=== PATIENT | male | born 1960 | race Caucasian/White ===

== ENCOUNTER 2021-09-12 08:48 | Inpatient (IN) | payer OTHER, SELFPAY ==
--- NOTE | 2020-09-16 20:00 | NUR ---
PATIENTG SEDATED STABLE VITALS SIGNS IN NORMAL LIMITS SR ON MONITOR NOT SIGNS OF PAIN //DiCaprio RN
[~2021-09-12] VITALS: Ht 193 cm; Wt 98.4 kg
[2021-09-12 08:48] VITALS: BP 156/95
[2021-09-12] MEDS ORDERED: LORazepam 2 MG/ML VIAL IVP ONE (08:50)
--- NOTE | 2021-09-12 09:10 | NUR ---
61/M BIBA FROM HOME WITH C/O SOB SINCE THIS MORNING. PER EMS PATIENT TESTED POSITIVE FOR COVID 3 WEEKS AGO AND WAS BEING TREATED FOR BOTH COVID AND LYMPHOMA AT [facility]. PATIENT REPORTS HE RECEIVED REMDESIVIR AT [facility] FOR COVID TREATMENT AND HAD AN ALLERGIC REACTION. EMS STATES PATIENT AMA FROM FACILITY YESTERDAY DUE TO FEELING "ISOLATED." EMS STATES AT HOME PATIENT HAD A FEVER OF 101.0 AND CHILLS AND OXYGEN SATURATION WAS IN THE 60'S. PATIENT ON 15L NON REBREATHER UPON ARRIVAL RAISING OXYGEN SATURATION TO 95%. UPON ARRIVAL TEMPERATURE 98.0. PATIENT PLACED IN GOWN AND ON BEDSIDE INSURANCE ADVISER. UPON ARRIVAL, DR. COWAN, RT AND RN AT BEDSIDE EVALUATING PATIENT.
[2021-09-12 10:38] LABS: BASOPHILS % (AUTO) 0.4 % (0.0-2.0); HEMATOCRIT 30.3 % (36-52); LYMPHOCYTES # (AUTO) 0.1 K/uL (2.0-11.5); LYMPHOCYTES % (AUTO) 0.9 % (20.5-51.1); MEAN CORPUSCULAR HEMOGLOBIN 31 pg (27-31); MEAN CORPUSCULAR HGB CONC 33 g/dL (33-37); MEAN CORPUSCULAR VOLUME 94.7 fL (80-94); MONOCYTES # (AUTO) 0.1 K/uL (0.8-1.0); MONOCYTES % (AUTO) 1.6 % (1.7-9.3); NEUTROPHILS # (AUTO) 8.1 K/uL (1.8-7.7); NEUTROPHILS % (AUTO) 97.1 % (42.2-75.2); PLATELET COUNT (AUTO) 109 K/uL (140-450); RED CELL DISTRIBUTION WIDTH 14.5 % (11.6-13.7); WHITE BLOOD COUNT (AUTO) 8.4 K/uL (4.8-10.8)
[2021-09-12 11:00] LABS: ALBUMIN 2.4 g/dL (3.4-5.0); CARBON DIOXIDE 15.2 mmol/L (21-32); POTASSIUM 5.2 mmol/L (3.5-5.1); TOTAL BILIRUBIN 1.1 mg/dL (0.0-1.0)
[2021-09-12 11:49] VITALS: BP 118/71
[2021-09-12 11:53] LABS: CREATININE 7.1 mg/dL (0.6-1.3)
[2021-09-12] MEDS ORDERED: NACL 0.9% 500 ML IV ONE (12:00)
--- NOTE | 2021-09-12 12:14 | NUR ---
PER V.O. DR. SHANE COWAN REMOVE PATIENT FROM BIPAP TO MASK TOLERATED
--- NOTE | 2021-09-12 12:14 | NUR ---
SPOKE TO PATIENTS AND MOTHER, GIVEN UPDATE ON PATIENTS STATUS.
--- NOTE | 2021-09-12 12:28 | NUR ---
REMOVED BIPAP TO MASK PLACED ON SUPPLEMENTAL OXYGEN AT 5 LPM VIA NC
--- NOTE | 2021-09-12 12:33 | NUR ---
SATURATION 87% ON SUPPLEMENTAL OYXGEN AT 5 LPM VIA NC INCREASED FIO2 TO 6 LPM
--- NOTE | 2021-09-12 12:34 | NUR ---
SATURATION 92% ON SUPPLEMENTAL OXYGEN AT 6 LPM VIA NC Addendum: 09/12/21 at 1303 by ROCKYA HR 24 [id number]
--- NOTE | 2021-09-12 12:37 | NUR ---
REVIEWED WITH DR. SHANE COWAN PATIENT STATUS OFF BIPAP; OXYGEN LEVEL AND SATURATION FROM 4 TO 6 LPM VIA NC
[2021-09-12] MEDS ORDERED: CEFEPIME 500 MG in DEXTROSE 5% 50 ML IV ONE (13:05)
[2021-09-12] MEDS ORDERED: VANCOMYCIN PER PHARMACY MC PRN (13:05)
[2021-09-12] MEDS ORDERED: VANCOMYCIN 1,000 MG in DEXTROSE 5% 250 ML IV ONE (13:30)
[2021-09-12] MEDS ORDERED: VANCOMYCIN 1,000 MG VIAL ONE (13:31)
--- NOTE | 2021-09-12 15:10 | NUR ---
SPOKE WITH MARY KATE, FROM PATIENTS INSURANCE, GIVEN AUTH TO ADMIT TO INPATIENT TELE AUTH #[id number]. REQUESTING CLINICALS BE FAXED
[2021-09-12] MEDS ORDERED: ACETAMINOPHEN EXTRA STRENGTH 500 MG TAB PO ONE (15:40)
[2021-09-12] MEDS ORDERED: ACETAMINOPHEN 650 MG SUPP RC ONE ×2 (15:50→18:00)
--- NOTE | 2021-09-12 16:00 | NUR ---
PATIENTS TEMPORAL TEMP READING 102.7, DR. STOREY MADE AWARE. PATIENT MEDICATED ORDERED.
[2021-09-12] MEDS ORDERED: MORPHINE SULFATE 2 MG/ML SYR IVP PRN (17:20)
[2021-09-12] MEDS ORDERED: HYDROcodone/APAP 5/325 MG 1 TAB TAB PO PRN (17:20)
[2021-09-12] MEDS ORDERED: ACETAMINOPHEN 325 MG TAB PO PRN (17:20)
[2021-09-12] MEDS ORDERED: NACL 0.9% 1,000 ML IV SCH (17:20)
[2021-09-12] MEDS ORDERED: SODIUM PHOS / POTASSIUM PHOS 1 PKT PDR PO PRN (17:20)
[2021-09-12] MEDS ORDERED: MAGNESIUM OXIDE 400 MG TAB PO PRN (17:20)
[2021-09-12] MEDS ORDERED: POTASSIUM CHLORIDE 10 MEQ TABER PO PRN (17:20)
[2021-09-12] MEDS ORDERED: DOCUSATE SODIUM 100 MG GELCAP PO PRN (17:20)
[2021-09-12] MEDS ORDERED: ONDANSETRON 4 MG/2 ML VIAL IM/IVP PRN (17:20)
--- NOTE | 2021-09-12 17:47 | NUR ---
DR. CHAPMAN BEDSIDE SPEAKING WITH FAMILY
--- NOTE | 2021-09-12 18:00 | NUR ---
GIVEN VERBAL ORDER BY DR. CHAPMAN FOR RC TYLENOL 650MG TO BE GIVEN. ORDER PLACED.
[2021-09-12] MEDS ORDERED: ACETAMINOPHEN 650 MG SUPP RC SCH (18:07)
[2021-09-12 18:48] LABS: MAGNESIUM 2.6 mg/dL (1.8-2.4)
--- NOTE | 2021-09-12 19:35 | NUR ---
Pt report given to FAITH NEELY. Transfer of care at this time.
--- NOTE | 2021-09-12 19:46 | NUR ---
report given to Ankita CUEVAS from [facility] unit.
--- NOTE | 2021-09-12 22:00 | NUR ---
RECEIVED PATIENT FROM ER, TRANSFERRED FROM [facility] TO BED SAFELY. HEART MONITOR PLACED. GOWN CHANGED AND ORIENTED TO ROOM. CALL LIGHT PLACED WITHIN REACH. PATIENT DROWSY BUT AROUSABLE AND ORIENTED X 4 WITH MUFFLED SPEECH. CALLED FOR ADMISSION Q&A, SAID PATIENT HAVE BEEN DROWSY SINCE DISCHARGE FROM [facility]. IV FLUIDS REGULATED AT DESIRED RATE. ADVISED PATIENT TO CALL FOR ANY NEEDS. WILL CONTINUE TO MONITOR PATIENT.
[2021-09-12] MEDS ORDERED: ACETAMINOPHEN 650 MG SUPP RC PRN (23:59)
[2021-09-13] VITALS (15 sets, daily range): BP systolic 95–168; BP diastolic 51–97
--- NOTE | 2021-09-13 02:00 | NUR ---
PATIENT RESTING COMFORTABLY ON BED. BREATHING EVEN AND UNLABORED. NO SIGNS OF RESPIRATORY DISTRESS. WILL CONTINUE TO MONITOR AND ASSESS.
--- NOTE | 2021-09-13 06:09 | NUR ---
PATIENT RESTING ON BED. OBSERVED SWELLING ON LEFT ARM. IV FLUIDS PLACED ON HOLD. UNABLE TO FIND A VEIN FOR IV INSERTION, CALLED ER NURSE TO INSERT IV LINE BUT UNABLE TO FIND ONE. WILL ENDORSE TO MORNING RN.
--- NOTE | 2021-09-13 07:30 | NUR ---
RECEIVED REPORT FROM SKINNER PELTS NURSE. PT STABLE
[2021-09-13 07:52] LABS: HEMATOCRIT 27.7 % (36-52); HEMOGLOBIN 9.2 g/dL (12.0-18.0); MEAN CORPUSCULAR HEMOGLOBIN 31 pg (27-31); MEAN CORPUSCULAR HGB CONC 33 g/dL (33-37); MEAN CORPUSCULAR VOLUME 94.4 fL (80-94); PLATELET COUNT (AUTO) 106 K/uL (140-450); RED BLOOD CELL COUNT(AUTO) 2.94 MIL/uL (4.20-6.10); RED CELL DISTRIBUTION WIDTH 14.6 % (11.6-13.7); WHITE BLOOD COUNT (AUTO) 10.7 K/uL (4.8-10.8)
[2021-09-13 08:40] LABS: ANION GAP 24.6 (8-16); CARBON DIOXIDE 14.4 mmol/L (21-32)
[2021-09-13 08:54] LABS: CREATININE 8.4 mg/dL (0.6-1.3)
[2021-09-13] MEDS ORDERED: PANTOPRAZOLE 40 MG INJ VIAL IVP SCH (09:00)
--- NOTE | 2021-09-13 10:32 | NUR ---
PATIENT HAS BEEN SCREENED AND CATEGORIZED HIGH NUTRITION RISK. PATIENT WILL BE SEEN WITHIN 1-2 DAYS OF ADMISSION. 09/13/21-09/14/[address]
--- NOTE | 2021-09-13 10:56 | NUR ---
GOT ABG ORDER. ORDER CANCELLED VERBALLY BY MD CHAPMAN. PT DNR NOW . AND RN AT BEDSIDE. WANTS PATIENT JUST TO BE COMFORTABLE NO TREATMENT AT THIS TIME. NO NEW ORDERS.
[2021-09-13] MEDS ORDERED: LORazepam 2 MG/ML VIAL IM/IVP PRN (11:30)
[2021-09-13] MEDS ORDERED: MORPHINE SULFATE 50 MG in NACL 0.9% 45 ML IV PRN (11:30)
--- NOTE | 2021-09-13 11:30 | NUR ---
PT IS NOW ON COMFORT CARE, DNR, DNI. PT FAMILY AT BEDSIDE. AWAITING ORDERS FOR MORPHINE DRIP PROTOCOL.
--- NOTE | 2021-09-13 12:21 | NUR ---
DC PLANNING: CM AND SW MET THE PATIENTS AT BEDSIDE, PATIENT WITH EYES CLOSES, RAPID RESPIRATIONS. THE PATIENT LIVES IN [place] BUT IS STAYING WITH HIS IN A MOTOR HOME AT [address] WHICH IS AN OFFICE BUILDING THAT THEY OWN. THE PATIENT ADMITTED WITH C/O SOB, TESTED COVID POSITIVE ON 09/09, WAS BEING TREATED AT [facility] FOR LYMPHOMA BUT DECIDED TO END TREATMENT. THE PATIENTS WOULD LIKE THE PATIENT TO RETURN TO THE MOTOR HOME WITH HOSPICE, CM EXPLAINED THAT THE PATIENT'S INSURANCE IS FOR [facility] AND THAT THERE MIGHT BE ISSUES WITH [facility]RANGING HOSPICE AT THE [employer] ADDRESS. DISCUSSED STARTING COMFORT CARE HERE AT THE HOSPITAL, BOTH STEFANIA AND FRANCISCO EXPLAINED THE EFFECTS OF A MORPHINE GTT INCLUDING DECREASED RESPIRATIONS AND POTENTIAL HASTENING OF EXPIRATION. EMPHASIZED IMPORTANCE OF KEEPING THE PATIENT COMFORTABLE, SUE STATED THAT SHE'S IN AGREEMENT WITH MORPHINE GTT AND THAT SHE WANTS HIM TO BE LESS ANXIOUS AND TO HELP HIS RESPIRATORY DISTRESS. SHE ALSO ASKED FOR A FOOD ASSEMBLER COMMISSARY KITCHEN FROM [facility] IN [place], CM CALLED THEM AND SPOKE WITH PASTOR SANDRA MCQUEEN WILL COME AROUND 3:00 PM TODAY. STEFANIA ALSO CALLED [email or web address] ([phone]) AND SPOKE WITH ARIADNA, MERCEDES FOR STEFANIA IVERSON GIVEN ([phone]). ARIADNA EMAILED CONTRACTED LIST OF HOSPICES, INFORMED STEFANIA THAT PATIENT WOULD HAVE TO COME BACK TO [facility] FOR SERVICES. CONTRACTED HOSPICES ARE IN [facility], LEFT FOR BRANDI REGARDING THIS. STEFANIA THEN SPOKE AGAIN WITH THE PATIENTS SPOUSE TO UPDATE HER ON THE [facility] ARRIVAL TIME. PATIENTS 2 SONS AT BEDSIDE, [facility] AND BEING STARTED ON MORPHINE GTT. PATIENTS SUE HAD STATED THAT PATIENT WAS NOW M/BEN BECAUSE SHE GAVE [place] A CHANGE OF ADDRESS FOR [facility], PATIENT IS STILL WITH [facility]. STEFANIA WILL FOLLOW. Addendum: 09/13/21 at 1346 by Alyson Garcia DC PLANNING SW AND CM MET WITH PATIENT AND AT BED SIDE TO DISCUSS PATIENT 'S NEEDS AND LEVELS OF CARE, DISCUSS HOSPICE AND OPTIONS WELL, FAMILY SUPPORT AND PREPARATION FOR FAMILY ACCEPTANCE OF PATIENT BEEN IN COMFORT CARE. WAS ABLE TO UNDERSTAND AND AGREED WITH NEEDS FOR PATIENT ON THAT LEVEL OF CARE. SW AND CM WILL FOLLOW UP NEEDED. Addendum: 09/13/21 at 1432 by Cherrie Fletcher CM DC PLANNING: STEFANIA RECEIVED A CALL FROM ASHLEY AT [facility] ([phone]), STATES THAT PATIENT IS CAPITATED TO [facility]. FACE SHEET AND COVID RESULTS FAXED PER HIS REQUEST ([phone]), HE WILL SPEAK WITH THE ATTENDING MD AND START ARRANGING A BED. STEFANIA SPOKE WITH THE PATIENTS AND MOTHER TO NOTIFY THEM AND ALSO DR CHAPMAN, FAMILY IS IN AGREEMENT WITH TRANSFER. PATIENT HAS NOW MADE THE PATIENT A FULL CODE, MORPHINE GTT STOPPED AND PATIENT TRANSFERRED TO ICU. DR CHAPMAN WILL WRITE A TRANSFER ORDER, CM WILL FOLLOW. Addendum: 09/14/21 at 1134 by Cherrie Fletcher CM DC PLANNING: STEFANIA SPOKE WITH THE PATIENTS SUE THIS MORNING TO UPDATE HER ON TRANSFER ARRANGEMENTS TO A CONTRACTED HOSPITAL. SUE STATES THAT SHE DOES NOT WANT HOSPICE, PATIENT NOW WITH LINDA, HD TO BE INITIATED. ON O2 OF 15L VIA NC, FIO2 NOW 80%, ON A PRECEDEX GTT. STEFANIA ALSO SPOKE WITH STEFANIA PAZ AT [facility] REGARDING TRANSFER, PHONE NUMBER [phone], ENDORSED THAT PATIENT IS NOW ICU STATUS. SHE WILL REVIEW THE PATIENT WITH HER HOOK UP DRIVER TO SEE IF HE IS COMFORTABLE TRANSFERRING THE PATIENT. STEFANIA WILL FOLLOW. Addendum: 09/14/21 at 1500 by Cherrie Fletcher CM DC PLANNING: STEFANIA SPOKE WITH BRANDI FROM [facility], THE HOOK UP DRIVER DR HOYT SPOKE WITH DR CHAPMAN, NOW WAITING FOR THE ACCEPTING MD AT [facility] DR HERNANDEZ TO SPEAK WITH THE ATTENDING MD HERE. [facility] IS THE ONLY CONTRACTED HOSPITAL WITH AN ICU BED, NO UPDATE YET. STEFANIA ALSO SPOKE WITH THE PATIENTS SUE AND UPDATED HER ON THE CURRENT SITUATION REGARDING HER HUSBANDS TRANSFER. STEFANIA WILL FOLLOW. Addendum: 09/14/21 at 1641 by Cherrie Fletcher CM DC PLANNING: STEFANIA SPOKE WITH BRANDI AT [facility], DR HERNANDEZ TO SPEAK WITH DR CHAPMAN REGARDING TRANSFER TO [facility], [facility] WILL CALL THE AUTOMATED WEAVER IF AN ICU BED BECOMES AVAILABLE. TO FOLLOW UP ON TRANSFER OVER THE WEEKEND PLEASE CALL THE AFTER HOURS NUMBER FOR [facility] AT [phone]. STEFANIA WILL FOLLOW. Addendum: 09/17/21 at 1615 by Magalys Fleming RN DC PLANNING: RECEIVED A CALL FROM [facility] [phone] SPOKE WITH BRANDI AGUIAR UPDATED PT'S CLINICAL, PATIENT CAN BE ADMITTED IN [facility] FOR HF 36L/NC WITH 65% FIO2 PROVIDE DR RODRIGUEZ'S CELL PHONE FOR PEER TO PEER DISCUSSION. ONCE SHE HAS ACCEPTING HOSPITAL WILL CALL US BACK. SPOKE WITH PT'S UPDATED WITH THE STATUS. CM TO FOLLOW. Addendum: 09/18/21 at 1413 by Magalys Fleming RN DC PLANNING: RECEIVED A CALL FROM [facility] STEFANIA SPOKE WITH BRANDI MATAMOROS PT IS ACCEPTED AT [facility] AT [address] [id number] # TO GIVE REPORT [phone] KIT VERGARA. ARRANGE TRANSPORT WITH NEIL NAVARRO WITH BIPAP 50%FIO2 ASSEMBLER BILLIARD TABLE TIME 3 PM. NOTIFIED CHRISTIANA CUEVAS. STEFANIA TO FOLLOW
[2021-09-13 13:03] LABS: BASOPHILS % (MANUAL) 0 % (0-2); BLASTS, MANUAL % 0 % (0-0); EOSINOPHILS % (MANUAL) 0 % (0-4); LYMPHOCYTES % (MANUAL) 1 % (20-46); METAMYELOCYTES % 0 % (0-0); MONOCYTES % (MANUAL) 3 % (5-12); MYELOCYTES % 0 % (0-0); OTHER CELLS,MANUAL % 0 (0-0); PROMYELOCYTES % 0 % (0-0)
--- NOTE | 2021-09-13 14:15 | NUR ---
PER RN, PT IS NOW ON COMFORT CARE, DNR, DNI. WILL DISCONTINUE NUTRITION ASSESSMENTS AND FOLLOW UPS. RD WILL REMAIN AVAILABLE FOR CONSULTS NEEDS AND WILL RESTART NUTRITION ASSESSMENT IF REQUESTED. SADAF BRICENO RD
--- NOTE | 2021-09-13 14:39 | NUR ---
PT TRANSFERRED TO ICU BED 8.
[2021-09-13] MEDS ORDERED: VANCOMYCIN PER PHARMACY MC PRN (14:55)
--- NOTE | 2021-09-13 15:30 | NUR ---
RECEIVED REPORT FROM HOME CARE AIDE. PATIENT MOVED TO ICU BED. ATTEMPTED TO PLACE NGT. BLEEDING FROM NARE AND PATIENT AGITATED. PATIENT LETHARGIC. OPENS EYES AND SQUEEZES HANDS TO COMMAND. WILL REATTEMPT ONCE NOSE BLEED SUBSIDES. O2 4L/NC SA02 84-90%. ANTERIO/LATERAL BREATH SOUNDS WITH CRACKLES AT BILATERAL BASES. RESP. RATE 22-30. BOWEL SOUNDS ACTIVE. ABDOMEN SOFT. INCONTINENT OF URINE. KLINE CATHETER PLACED.
[2021-09-13] MEDS: DEXMEDETOMIDINE HCL 400 MCG in NACL 0.9% 96 ML IV PRN (15:41)
--- NOTE | 2021-09-13 15:45 | NUR ---
ON OR ABOUT THIS TIME CONFIRMATION ON STATUS CODE: FULL CODE VIA CELL PHONE WITH DR. BELLA CHAPMAN
--- NOTE | 2021-09-13 15:45 | NUR ---
SPOKE WITH . CONSENTS SIGNED FOR PICC LINE, DIALYSIS CATHETER AND DIALYSIS.
--- NOTE | 2021-09-13 15:55 | NUR ---
PLACED ON A VAPOTHERM NASAL CANNULA NOTED TOLERATING WELL WITHOUT ADVERSE REACTIONS NOTED NEYDA/RN NOTED
[2021-09-13] MEDS: FLUCONAZOLE 100 MG/NS PREMIX 50 ML IV SCH (16:00)
[2021-09-13] MEDS ORDERED: CEFEPIME 500 MG in DEXTROSE 5% 50 ML IV SCH (16:30)
--- NOTE | 2021-09-13 16:58 | NUR ---
RN'S AT BEDSIDE FOR NG INSERTION ASP NET MVC DEVELOPER TO ATTEMPT ABG AT A LATER TIME
[2021-09-13 17:10] LABS: BILIRUBIN,URINE NEGATIVE (NEGATIVE); BLOOD, URINE 3+ (NEGATIVE); COLOR,URINE YELLOW (YELLOW); LEUKOCYTE ESTERASE ,URINE NEGATIVE (NEGATIVE); NITRITE, URINE NEGATIVE (NEGATIVE); UGLUCOSE NEGATIVE (NEGATIVE)
[2021-09-13 17:14] LABS: APPEARANCE,URINE SLIGHTLY CLOUDY (CLEAR)
[2021-09-13] MEDS ORDERED: ACETAMINOPHEN 650 MG SUPP RC ONE (17:18)
[2021-09-13] MEDS: ACETAMINOPHEN 650 MG SUPP RC PRN (17:22)
--- NOTE | 2021-09-13 17:30 | NUR ---
URINE SPECIMEN COLLECTED AND SENT TO LAB FOR CULTURE.
--- NOTE | 2021-09-13 17:54 | NUR ---
CALLED DR. DANNI LINDER AT [facility] TO REVIEW ABG SAMPLE RESULTS REYNALDO/EXCHANGE TO PAGE FOREMENTIONEDiane GÓMEZ
[2021-09-13 17:56] LABS: RBC,URINE 0-5 /HPF (0-5); WBC,URINE 0-5 /HPF (0-5)
--- NOTE | 2021-09-13 17:57 | NUR ---
CALL BACK FROM DR. DANNI LINDER REVIEWED ABG SAMPLE REPORT; HIGH FLOW NASAL CANNULA FIO2 90% FLOW 16 T 33.O C TORBO: CONTINUE WITH CURRENT TREATMENT
[2021-09-13] MEDS: CEFEPIME 500 MG in DEXTROSE 5% 50 ML IV SCH (18:00)
[2021-09-13] MEDS ORDERED: VANCOMYCIN 1,000 MG in DEXTROSE 5% 250 ML IV SCH (18:30)
--- NOTE | 2021-09-13 19:18 | NUR ---
REPORT GIVEN TO RAFAEL RNRODRIGUEZ.
--- NOTE | 2021-09-13 19:20 | NUR ---
RECEIVED REPORT FROM DAY SHIFT NURSE, ASSUMED CARE. PATIENT IN NO APPARENT ACUTE DISTRESS, BREATHING ON HIGH FLOW AT 15 L/MIN FIO2 90%, O2 SAT 99%. EVEN BILATERAL CHEST EXPANSION WITH BILATERAL CRACKLES HEAR UPON AUSCULATION. PATIENT SEDATED RUNNING PRECEDEX 0.4 MCG/KG/HR VIA R 22 GAUGE ON R FOOT. PERRL +3 MM[address] K[address] CATHETER IN PLACE DRAINING AT GRAVITY. SKIN INTACT. ALL SAFETY MEASURES IN PLACE, WILL CONTINUE TO CLOSELY MONITOR AND FOLLOW POC.
--- NOTE | 2021-09-13 19:25 | NUR ---
SPOKE TO PATIENT'S SUE IN THE LOBBY, PROVIDED UPDATE. INQUIRED ABOUT PATIENT'S TRANSFER TO [facility] IF IT WAS ALREADY ARRANGED, NOTIFIED HER THAT CASE MANAGEMENT SENT ALL REQUIRED DOCUMENTATION TO [facility] AND STILL PENDING ACCEPTANCE.
--- NOTE | 2021-09-13 21:44 | NUR ---
PATIENT OBSERVED SEDATED WITH EYES CLOSED IN NO ACUTE DISTRESS. BREATHING ON HIGH FLOW O2 15 L/MIN FIO2 90%, O2 SAT 99%. ALL SAFETY MEASURES IN PLACE, WILL CONTINUE TO CLOSELY MONITOR AND FOLLOW POC.
--- NOTE | 2021-09-13 23:00 | NUR ---
RECEIVED CALL FROM PT'S SUE, PROVIDED HER WITH PT UPDATE. NOTIFIED HER PATIENT IS STILL PENDING DIALYSIS CATHETER INSERTION AND PICC LINE INSERTION. ALSO NOTIFIED HER THERE ARE NO UPDATES REGARDING TRANSFER TO [facility].
[2021-09-14] VITALS (26 sets, daily range): BP systolic 84–136; BP diastolic 47–93
[2021-09-14] MEDS ORDERED: LORazepam 2 MG/ML VIAL ONE (00:04)
--- NOTE | 2021-09-14 00:27 | NUR ---
MYCHAL PADRON PERFORMED DIALYSIS CATHETER INSERTION. PATIENT IN NO APPARENT ACUTE DISTRESS. ADMINISTERED ATIVAN PRIOR TO PROCEDURE FOR AGITATION. PATIENT TOLERATED PROCEDURE WELL. WILL CONTINUE TO CLOSELY MONITOR AND FOLLOW POC.
--- NOTE | 2021-09-14 01:43 | NUR ---
PATIENT OBSERVED SEDATED IN NO ACUTE DISTRESS. O2 SAT 99% ON HIGH FLOW FIO2 90%, 15 L/MIN. PRECEDEX RUNNING AT 0.2 MCG/KG/HR. ALL SAFETY MEASURES IN PLACE, WILL CONTINUE TO CLOSELY MONITOR AND FOLLOW POC.
--- NOTE | 2021-09-14 03:00 | NUR ---
PROVIDED MORNING CARE, PATIENT IN NO ACUTE DISTRESS. BREATHING ON HIGH FLOW 15 L FIO2 90% SATURATION 100%. STOPPED PRECEDEX PATIENT IS SEDATED WITH NO SIGNS OF AGITATION OR RESTLESSNESS. ALL SAFETY MEASURES IN PLACE, WILL CONTINUE TO CLOSELY MONITOR AND FOLLOW POC.
--- NOTE | 2021-09-14 03:57 | NUR ---
PAGED [place] KID[facility] SPECIALIST PER PICC LINE NURSE SUNI REQUEST TO CONFIRM IF PATIENT REQUIRES A PICC LINE INSERTION. PATIENT HAD TRIDIALYSIS CATHETER INSERTED AND NEED TO CONFIRM IF IT MAY BE USED FOR IV ACCESS.
--- NOTE | 2021-09-14 04:08 | NUR ---
DR. GARCIA CALLED BACK AND CONFIRMED IT'S OK TO USE TRIDIALYSIS CATHETER CENTRAL LINE AND NO NEED TO INSERT PICC LINE. PICC LINE NURSE NOTIFIED AND MADE AWARE.
--- NOTE | 2021-09-14 06:00 | NUR ---
SPOKE WITH DIALYSIS NURSE PLACIDO TO CONFIRM DIALYSIS FOR PATIENT THIS MORNING, PLACIDO MADE AWARE OF ORDER AND DIALYSIS ACCESS. PER CUMMINS, DIALYSIS TO BE DONE BETWEEN 0800 - 0900 THIS MORNING.
--- NOTE | 2021-09-14 06:05 | NUR ---
PATIENTS SUE CALLED FOR UPDATE, UPDATED HER REGARDING MOST CURRENT CONDITION, ALL QUESTIONS ANSWERED. PATIENT IN NO ACUTE DISTRESS. WILL CONTINUE TO CLOSELY MONITOR AND FOLLOW POC.
[2021-09-14 06:08] LABS: BASOPHILS % (AUTO) 0.1 % (0.0-2.0); HEMATOCRIT 22.3 % (36-52); HEMOGLOBIN 7.4 g/dL (12.0-18.0); LYMPHOCYTES # (AUTO) 0.1 K/uL (2.0-11.5); LYMPHOCYTES % (AUTO) 2.1 % (20.5-51.1); MEAN CORPUSCULAR HEMOGLOBIN 32 pg (27-31); MEAN CORPUSCULAR HGB CONC 34 g/dL (33-37); MEAN CORPUSCULAR VOLUME 94.4 fL (80-94); MONOCYTES % (AUTO) 0.9 % (1.7-9.3); NEUTROPHILS # (AUTO) 3.9 K/uL (1.8-7.7); NEUTROPHILS % (AUTO) 96.9 % (42.2-75.2); PLATELET COUNT (AUTO) 54 K/uL (140-450); RED BLOOD CELL COUNT(AUTO) 2.36 MIL/uL (4.20-6.10); RED CELL DISTRIBUTION WIDTH 14.5 % (11.6-13.7)
--- NOTE | 2021-09-14 07:26 | NUR ---
GAVE REPORT TO DAY SHIFT NURSE, ENDORSED CARE. Addendum: 09/14/21 at 0728 by Eloise Eden RN PATIENT IN NO ACUTE DISTRESS. O2 SAT 99%.
--- NOTE | 2021-09-14 07:30 | NUR ---
RECEIVED REPORT FROM PASTEURIZER NURSE. PT IN BD WITH HOB ELEVATED. LETHARGIC, RESPONDS TO TACTILE STIMULI. NO APPARENT ACUTE DISTRESS ON HIGH FLOW AT 15 L/MIN FIO2 80%, O2 SAT 97%. EVEN BILATERAL CHEST EXPANSION WITH BILATERAL CRACKLES HEAR UPON AUSCULTATION. WITH IV R 22 GAUGE ON R FOOT. WITH RIJ ROSHAN CATH WITH PIGTAIL. PLAN FOR HD TODAY, HD NURSE AWARE. KLINE CATHETER IN PLACE DRAINING AT GRAVITY. SKIN INTACT. ALL SAFETY MEASURES IN PLACE, WILL CONTINUE TO CLOSELY MONITOR AND FOLLOW POC.
[2021-09-14 08:04] LABS: ANION GAP 24.2 (8-16); CARBON DIOXIDE 12.2 mmol/L (21-32)
[2021-09-14 08:28] LABS: POTASSIUM 6.4 mmol/L (3.5-5.1)
[2021-09-14 08:29] LABS: CREATININE 10.2 mg/dL (0.6-1.3)
--- NOTE | 2021-09-14 09:15 | NUR ---
DUE MEDS GIVEN. ORAL CARE AND KLINE CARE DONE. TURNED AND REPOSITIONED
[2021-09-14] MEDS: PANTOPRAZOLE 40 MG INJ VIAL IVP SCH (09:16)
--- NOTE | 2021-09-14 09:30 | NUR ---
PT'S , SUE, IN FRONT LOBBY, UPDATE GIVEN
[2021-09-14] MEDS ORDERED: ALBUMIN HUMAN 25% 100 ML IV ONE ×2 (09:42→09:45)
[2021-09-14] MEDS ORDERED: ALBUMIN HUMAN 25% 100 ML IV PRN (09:45)
--- NOTE | 2021-09-14 10:30 | NUR ---
HD ONGOING, BP 87/45, PRN ALBUMIN GIVEN
--- NOTE | 2021-09-14 11:00 | NUR ---
CALLED BEDSIDE DUE TO LOW SPO2. FLOW INCREASED TO 40L AND FIO2 INCREASED TO 100%, NRB PLACED OVER HIGH FLOW DUE TO LOW INCREASE IN SPO2 PERCENTAGE. WILL CONTINUE TO MONITOR.
--- NOTE | 2021-09-14 11:00 | NUR ---
DESATURATING TO 85% ON HIFLOW 15L 80%, RT NOTIFIED, INCREASED HIFLOW TO 40L 100%
--- NOTE | 2021-09-14 12:30 | NUR ---
HEMODIALYSIS DONE. BP STABLE AT THIS TIME. O2SAT 100% ON HIFLOW 40L FIO2, NRM 15L
--- NOTE | 2021-09-14 13:58 | NUR ---
PT'S CALLED, UPDATE GIVEN
[2021-09-14] MEDS: DEXT 5% /NACL 0.9% 1,000 ML IV SCH (15:08)
--- NOTE | 2021-09-14 16:23 | NUR ---
09/14/21 RD INITIAL ASSESSMENT COMPLETED PLEASE REFER TO NUTRITION ASSESSMENT UNDER CARE ACTIVITY FOR ESTIMATED NUTRITIONAL NEEDS. 1. CONTINUE NPO MEDICALLY APPROPRIATE 2. WHEN/IF MEDICALLY APPROPRIATE, ADVANCE DIET PER MD 3. IF PT REQUIRES TUBE FEEDING, RECOMMEND NEPRO WITH A GOAL RATE OF 40 ML/HR -FWF: 50 ML Q6H OR PER MD -START AT 10 ML/HR AND INCREASE BY 10 ML Q6H TOLERATED -WILL PROVIDE > 75% OF ESTIMATED NUTRITION NEEDS 4. RD TO FOLLOW-UP 2-3 DAYS, HIGH RISK SADAF BRICENO RD
[2021-09-14] MEDS: FLUCONAZOLE 100 MG/NS PREMIX 50 ML IV SCH (16:26)
[2021-09-14] MEDS: CEFEPIME 500 MG in DEXTROSE 5% 50 ML IV SCH (17:04)
[2021-09-14] MEDS ORDERED: TPN PER PHARMACY MC PRN (17:20)
[2021-09-14] MEDS: ACETAMINOPHEN 650 MG SUPP RC PRN (18:00)
--- NOTE | 2021-09-14 18:00 | NUR ---
WITH TEMP 100.2, COOLING MEASURES RENDERED, BAIRON CARE DONE, TURNED AND REPOSITIONED
--- NOTE | 2021-09-14 19:10 | NUR ---
RECEIVED REPORT FROM DAY SHIFT NURSE, ASSUMED CARE. PATIENT IN NO APPARENT ACUTE DISTRESS, BREATHING ON HIGH FLOW AT 40 L/MIN FIO2 100%, AND NON-REBREATHER MASK AT 15 L, O2 SAT 99%. EVEN BILATERAL CHEST EXPANSION WITH BILATERAL CRACKLES HEARD UPON AUSCULATION. PATIENT LIGHTLY SEDATED RUNNING PRECEDEX 0.2 MCG/KG/HR VIA PIGTAIL ON RIGHT IJ TRIDIALYSIS CATHETER. PERRL +3 MM. KLINE CATHETER IN PLACE DRAINING AT GRAVITY. SKIN INTACT. ALL SAFETY MEASURES IN PLACE, WILL CONTINUE TO CLOSELY MONITOR AND FOLLOW POC
--- NOTE | 2021-09-14 20:00 | NUR ---
PATIENT IN NO APPARENT ACUTE DISTRESS, O2 SAT 100%. TEMPERATURE 99.3. COOLING MEASURES STILL IN PLACE WILL CONTINUE TO CLOSELY MONITOR AND FOLLOW POC.
--- NOTE | 2021-09-14 21:00 | NUR ---
RECEIVED CALL FROM PT'S SUE, PROVIDED HER WITH PT UPDATE. ALL QUESTIONS ANSWERED.
[2021-09-14] MEDS: DEXMEDETOMIDINE HCL 400 MCG in NACL 0.9% 96 ML IV PRN (23:28)
[2021-09-15] VITALS (26 sets, daily range): BP systolic 94–127; BP diastolic 44–78
--- NOTE | 2021-09-15 00:30 | NUR ---
PATIENT OBSERVED WITH EYES CLOSED IN NO APPARENT ACUTE DISTRESS, PRECEDEX DRIP NO LONGER RUNNING ONLY RUNNING D5 NS AT 50 ML/HR. BREATHING ON HIGH FLOW AT 40 L AND FIO2 100% AND NON REBREATHER AT 15 L, O2 SAT 100%. TEMPERATURE 99.3. ALL SAFETY MEASURES IN PLACE, WILL CONTINUE TO CLOSELY MONITOR AND FOLLOW POC.
--- NOTE | 2021-09-15 00:30 | NUR ---
ACCUCHECK BS 170, 2 UNITS OF HUMALOG INSULIN COVERAGE ADMINISTERED. PATIENT IN NO APPARENT ACUTE DISTRESS, CONTINUES ON HIGH FLOW AT 40 L/MIN AND FIO2 90 %. NO FEVER AT THIS TIME. WILL CONTINUE TO CLOSELY MONITOR AND FOLLOW POC. Addendum: 09/16/21 at 0247 by Eloise Eden RN WRONG DATE INPUT. CORRECT DATE 09/16/21 0030
--- NOTE | 2021-09-15 04:30 | NUR ---
MORNING CARE PROVIDED INCLUDING ORAL CARE. PATIENT IN NO APPARENT ACUTE DISTRESS, TOLERATED WELL. TEMP 98.4. PATIENT AWAKE AOX1 UNABLE TO SPEAK CLEARLY, DENIES PAIN BY NODDING HEAD. CONTINUES ON HIGH FLOW AT 40 L, FIO2 100%, AND NONREBREATHER AT [address] PL[address] WITH NO URINE OUTPUT AND NO BM. ALL SAFETY MEASURES IN PLACE, WILL CONTINUE TO CLOSELY MONITOR AND FOLLOW POC.
[2021-09-15 05:45] LABS: BASOPHILS % (AUTO) 0.3 % (0.0-2.0); HEMATOCRIT 22.9 % (36-52); HEMOGLOBIN 7.8 g/dL (12.0-18.0); LYMPHOCYTES # (AUTO) 0.1 K/uL (2.0-11.5); LYMPHOCYTES % (AUTO) 1.1 % (20.5-51.1); MEAN CORPUSCULAR HEMOGLOBIN 32 pg (27-31); MEAN CORPUSCULAR HGB CONC 34 g/dL (33-37); MEAN CORPUSCULAR VOLUME 93.2 fL (80-94); MONOCYTES # (AUTO) 0.1 K/uL (0.8-1.0); MONOCYTES % (AUTO) 0.9 % (1.7-9.3); NEUTROPHILS # (AUTO) 6.4 K/uL (1.8-7.7); NEUTROPHILS % (AUTO) 97.7 % (42.2-75.2); PLATELET COUNT (AUTO) 70 K/uL (140-450); RED BLOOD CELL COUNT(AUTO) 2.46 MIL/uL (4.20-6.10); RED CELL DISTRIBUTION WIDTH 14.8 % (11.6-13.7); WHITE BLOOD COUNT (AUTO) 6.6 K/uL (4.8-10.8)
[2021-09-15 05:48] LABS: ANION GAP 20.1 (8-16); CARBON DIOXIDE 21.1 mmol/L (21-32); POTASSIUM 4.2 mmol/L (3.5-5.1)
[2021-09-15 06:10] LABS: CREATININE 8.1 mg/dL (0.6-1.3)
[2021-09-15 06:21] LABS: MAGNESIUM 2.5 mg/dL (1.8-2.4); PHOSPHORUS 8.5 mg/dL (2.5-4.9)
--- NOTE | 2021-09-15 07:06 | NUR ---
PT WAS ON NRB @15LPM AND HFNC 100% 40L WITH SATS OF 100%. PATIENT WAS STABLE THROUGHOUT THE NIGHT ACCORDING TO REPORTS AND PT WAS TAKEN OFF 15LPM NRB AND JUST HAS HFNC. PT IS STILL SAT @ 100a%. WILL CONT TO MONITOR
--- NOTE | 2021-09-15 07:26 | NUR ---
PROVIDED REPORT TO DAY SHIFT, ENDORSED CARE. PATIENT IN NO ACUTE DISTRESS.
--- NOTE | 2021-09-15 07:26 | NUR ---
RECEIVED REPORT FROM RODRIGUEZ HALL RN. PT IN BD WITH HOB ELEVATED. LETHARGIC, RESPONDS TO TACTILE STIMULI. NO APPARENT ACUTE DISTRESS ON HIGH FLOW AT 40 L/MIN FIO2 100%. EVEN BILATERAL CHEST EXPANSION WITH BILATERAL CRACKLES HEAR UPON AUSCULTATION. WITH IV R 22 GAUGE ON R FOOT. WITH RIJ ROSHAN CATH WITH PIGTAIL. F/C IN PLACE DRAINING TO GRAVITY. SKIN INTACT. DROPLET PRECAUTIONS IN PLACE FOR COVID PUI. ALL SAFETY MEASURES IN PLACE, WILL CONTINUE TO CLOSELY MONITOR.
--- NOTE | 2021-09-15 08:20 | NUR ---
CALLED. UPDATED REGARDING PT CONDITION VIA TELEPHONE. ALL QUESTIONS ANSWERED AT THIS TIME.
--- NOTE | 2021-09-15 08:25 | NUR ---
SEEN AND EXAMINED BY DR REARDON.
--- NOTE | 2021-09-15 08:50 | NUR ---
SEEN AND EXAMINED BY DR WILSON.
[2021-09-15] MEDS: PANTOPRAZOLE 40 MG INJ VIAL IVP SCH (08:53)
--- NOTE | 2021-09-15 09:30 | NUR ---
SEEN AND EXAMINED BY DR BULL.
[2021-09-15] MEDS ORDERED: VANCOMYCIN 1,000 MG in DEXTROSE 5% 250 ML IV SCH (10:00)
[2021-09-15] MEDS: DEXT 5% /NACL 0.9% 1,000 ML IV SCH (10:25)
--- NOTE | 2021-09-15 11:00 | NUR ---
PT CLEANED AND REPOSITIONED. WATERY LIGHT BROWN STOOL NOTED. RECTAL TUBE INSERTED PER DR WILSON ORDER. Addendum: 09/15/21 at 1508 by Elle Mancilla RN WRONG PATIENT PLEASE DISREGARD.
--- NOTE | 2021-09-15 12:00 | NUR ---
PT AGITATED, REACHING FOR F/C. PT REORIENTED VERBALLY. RESUMED PRECEDEX DRIP AT 0.2 MCG/KG/HR PER PROTOCOL. WILL CONTINUE TO CLOSELY MONITOR.
[2021-09-15] MEDS: BLOOD GLUCOSE MONITORING 1 DEV DEV MC SCH ×2 (12:39→17:52)
--- NOTE | 2021-09-15 13:00 | NUR ---
RASS 0. PT CALM IN THE BED. PRECEDEX CONTINUED AT 0.2 MCG/KG/HR. WILL CONTINUE TO CLOSELY MONITOR.
[2021-09-15] MEDS: FLUCONAZOLE 100 MG/NS PREMIX 50 ML IV SCH (15:43)
--- NOTE | 2021-09-15 16:00 | NUR ---
DIALYSIS NURSE AT BEDSIDE. DIALYSIS STARTED. WILL CONTINUE TO CLOSELY MONITOR.
[2021-09-15] MEDS: CEFEPIME 500 MG in DEXTROSE 5% 50 ML IV SCH (16:45)
--- NOTE | 2021-09-15 17:00 | NUR ---
SEEN AND EXAMINED BY DR TOMAS. ORDERS RECEIVED.
--- NOTE | 2021-09-15 19:15 | NUR ---
RECEIVED REPORT FROM DAY SHIFT NURSE, ASSUMED CARE. PATIENT IN NO APPARENT ACUTE DISTRESS, BREATHING ON HIGH FLOW AT 40 L/MIN FIO2 90%, O2 SAT 100%. EVEN BILATERAL CHEST EXPANSION WITH BILATERAL CLEAR LUNG SOUNDS HEARD UPON AUSCULATION. PATIENT LIGHTLY SEDATED RUNNING PRECEDEX 0.2 MCG/KG/HR VIA PIGTAIL ON RIGHT IJ ROSHAN CATHETER. PERRL +3 MM. KLINE CATHETER IN PLACE DRAINING AT GRAVITY. SKIN INTACT. DIALYSIS NURSE LEAVING BEDSIDE WITH REPORT GIVEN OF 1900 ML OUTPUT. ALL SAFETY MEASURES IN PLACE, WILL CONTINUE TO CLOSELY MONITOR AND FOLLOW POC.
--- NOTE | 2021-09-15 19:20 | NUR ---
ENDORSED BEDSIDE REPORT TO RODRIGUEZ CUEVAS FOR CONTINUITY OF CARE.
[2021-09-15] MEDS: FAT EMULSION 20% IV SCH ×3 (21:00)
[2021-09-15] MEDS: DEXTROSE 20% IV SCH ×3 (21:00)
[2021-09-15] MEDS: AMINO ACIDS 8.5% IV SCH ×3 (21:00)
--- NOTE | 2021-09-15 23:00 | NUR ---
RECEIVED CALL FROM PATIENTS SUE, PROVIDED HER WITH AN UPDATE REGARDING PATIENT'S CONDITION. ALL QUESTIONS ANSWERED AND ADDRESSED.
[2021-09-16] VITALS (25 sets, daily range): BP systolic 110–159; BP diastolic 62–89
--- NOTE | 2021-09-16 00:30 | NUR ---
ACCUCHECK BS 170, 2 UNITS OF HUMALOG INSULIN COVERAGE ADMINISTERED. PATIENT IN NO APPARENT ACUTE DISTRESS, CONTINUES ON HIGH FLOW AT 40 L/MIN AND FIO2 90 %. NO FEVER AT THIS TIME. WILL CONTINUE TO CLOSELY MONITOR AND FOLLOW POC.
--- NOTE | 2021-09-16 01:20 | NUR ---
RT AT BEDSIDE, DECREASED HIGH FLOW FIO2 TO 80%. PT TOLERATED WELL. WILL CONTINUE TO CLOSELY MONITOR AND FOLLOW POC.
[2021-09-16] MEDS: INSULIN LISPRO SLIDING SCALE 100 UNITS/ML VIAL SUBQ PRN ×3 (01:48→17:58)
--- NOTE | 2021-09-16 03:30 | NUR ---
MORNING AND ORAL CARE PROVIDED, PATIENT TOLERATED WELL. PATIENT IN NO APPARENT ACUTE DISTRESS, BREATHING ON HIGH FLOW AT 40 L/MIN AND FIO2 80%, O2 SAT 99%. PRECEDEX CONTINUES TO RUN AT 0.2 MCG/KG/HR, PATIENT REACTS TO TACTILE STIMULI BUT DOES NOT OPEN EYES, RASS 0. ALL SAFETY MEASURES IN PLACE, WILL CONTINUE TO CLOSELY MONITOR AND FOLLOW POC.
[2021-09-16 05:12] LABS: BASOPHILS % (AUTO) 0.2 % (0.0-2.0); EOSINOPHILS % (AUTO) 0.2 % (0.0-4.0); HEMATOCRIT 22.1 % (36-52); HEMOGLOBIN 7.4 g/dL (12.0-18.0); LYMPHOCYTES # (AUTO) 0.1 K/uL (2.0-11.5); MEAN CORPUSCULAR HEMOGLOBIN 31 pg (27-31); MEAN CORPUSCULAR HGB CONC 34 g/dL (33-37); MEAN CORPUSCULAR VOLUME 93.3 fL (80-94); MONOCYTES # (AUTO) 0.1 K/uL (0.8-1.0); NEUTROPHILS # (AUTO) 7.5 K/uL (1.8-7.7); PLATELET COUNT (AUTO) 65 K/uL (140-450); RED BLOOD CELL COUNT(AUTO) 2.36 MIL/uL (4.20-6.10); RED CELL DISTRIBUTION WIDTH 14.8 % (11.6-13.7); WHITE BLOOD COUNT (AUTO) 7.6 K/uL (4.8-10.8)
[2021-09-16 05:39] LABS: CREATININE 6.6 mg/dL (0.6-1.3)
[2021-09-16] MEDS: BLOOD GLUCOSE MONITORING 1 DEV DEV MC SCH ×4 (05:47→17:54)
[2021-09-16 05:50] LABS: MAGNESIUM 2.4 mg/dL (1.8-2.4); PHOSPHORUS 5.6 mg/dL (2.5-4.9)
--- NOTE | 2021-09-16 06:00 | NUR ---
RECEIVED CALL FROM PT'S SUE, PROVIDED HER WITH UPDATE. ALL QUESTIONS ANSWERED.
[2021-09-16 06:16] LABS: LYMPHOCYTES % (AUTO) 0.9 % (20.5-51.1); MONOCYTES % (AUTO) 0.9 % (1.7-9.3); NEUTROPHILS % (AUTO) 97.8 % (42.2-75.2)
[2021-09-16] MEDS: DEXT 5% /NACL 0.9% 1,000 ML IV SCH (07:02)
--- NOTE | 2021-09-16 07:15 | NUR ---
Received pt on semi fowlers position,not in distress, on HFNC at 80% FIO2,saturating well, vital signs stable, on TPN infusing well at 50mls/hr. Sanjay catheter with pigtail via right internaljugular vein, dressing dry.With navarro catheter patent connected to drainage bag
--- NOTE | 2021-09-16 07:15 | NUR ---
GAVE REPORT TO DAY SHIFT NURSE, ENDORSED CARE. PT IN NO APPARENT ACUTE DISTRESS.
--- NOTE | 2021-09-16 07:23 | NUR ---
CALLED DIALYSIS NURSE CUMMINS AND CONFIRMED DIALYSIS SCHEDULED FOR TODAY.
[2021-09-16] MEDS: PANTOPRAZOLE 40 MG INJ VIAL IVP SCH (08:57)
--- NOTE | 2021-09-16 09:40 | NUR ---
Dr Castillo here, seen pt, noted all parameters, no further orders,continue plan of care.
--- NOTE | 2021-09-16 10:30 | NUR ---
Dr Degroot here, seen and examined pt, no further orders.
--- NOTE | 2021-09-16 12:00 | NUR ---
Turning and repositioning done,skin care done
[2021-09-16] MEDS: DEXMEDETOMIDINE HCL 400 MCG in NACL 0.9% 96 ML IV PRN (14:57)
--- NOTE | 2021-09-16 15:00 | NUR ---
Pt became restless,agitated, pulling out lines,shouting, precedex resumetokeep RSS of -1. HD nurse here and started dialyzing the pt
[2021-09-16] MEDS: CEFEPIME 500 MG in DEXTROSE 5% 50 ML IV SCH (17:25)
[2021-09-16] MEDS ORDERED: COMMUNICATION ORDER MC PRN (17:25)
[2021-09-16] MEDS: ACYCLOVIR 200 MG CAP PO SCH (18:00)
--- NOTE | 2021-09-16 19:01 | NUR ---
pt anxious,but notin distress, vitalsigns stable,saturating well.stillon HFNC at 65 % FIO2.
[2021-09-16] MEDS: DEXTROSE 20% IV SCH ×3 (20:24)
[2021-09-16] MEDS: FAT EMULSION 20% IV SCH ×3 (20:24)
[2021-09-16] MEDS: AMINO ACIDS 8.5% IV SCH ×3 (20:24)
[2021-09-17] VITALS (23 sets, daily range): BP systolic 128–160; BP diastolic 52–99
--- NOTE | 2021-09-17 | NUR ---
PATIENT STABLE SEDATED VITALS SIGNS IN NORMAL LIMITS NOT SIGNS OF PAIN PRCEDEX GOING AT 0.06 //DiCaprio RN
[2021-09-17] MEDS: BLOOD GLUCOSE MONITORING 1 DEV DEV MC SCH ×4 (00:14→18:23)
[2021-09-17] MEDS: DEXMEDETOMIDINE HCL 400 MCG in NACL 0.9% 96 ML IV PRN ×4 (00:31→22:26)
[2021-09-17 06:49] LABS: BASOPHILS % (AUTO) 0.1 % (0.0-2.0); EOSINOPHILS % (AUTO) 0.1 % (0.0-4.0); LYMPHOCYTES # (AUTO) 0.1 K/uL (2.0-11.5); LYMPHOCYTES % (AUTO) 1.3 % (20.5-51.1); MEAN CORPUSCULAR HEMOGLOBIN 32 pg (27-31); MEAN CORPUSCULAR HGB CONC 34 g/dL (33-37); MEAN CORPUSCULAR VOLUME 94.7 fL (80-94); MONOCYTES # (AUTO) 0.1 K/uL (0.8-1.0); MONOCYTES % (AUTO) 1.2 % (1.7-9.3); NEUTROPHILS # (AUTO) 8.1 K/uL (1.8-7.7); NEUTROPHILS % (AUTO) 97.3 % (42.2-75.2); PLATELET COUNT (AUTO) 58 K/uL (140-450); RED BLOOD CELL COUNT(AUTO) 1.85 MIL/uL (4.20-6.10); RED CELL DISTRIBUTION WIDTH 15.1 % (11.6-13.7); WHITE BLOOD COUNT (AUTO) 8.4 K/uL (4.8-10.8)
--- NOTE | 2021-09-17 07:10 | NUR ---
Received pt on semi fowlers position,breathing spontaneously with 75% FIO2,saturating 96%,not in distress,on TPN at 50 mls/hr, Precedex drip to keep RASS of -1, with right internal jugular vein Sanjay catheter intact , with navarro catheter patent ,no output, pt on HD. Vital signs stable,saturating well
[2021-09-17 07:26] LABS: HEMATOCRIT 17.5 % (36-52)
[2021-09-17 07:27] LABS: ANION GAP 16.9 (8-16)
[2021-09-17 07:43] LABS: MAGNESIUM 1.8 mg/dL (1.8-2.4)
[2021-09-17 07:58] LABS: CREATININE 4.2 mg/dL (0.6-1.3); POTASSIUM 2.9 mmol/L (3.5-5.1)
[2021-09-17] MEDS: PANTOPRAZOLE 40 MG INJ VIAL IVP SCH (08:25)
--- NOTE | 2021-09-17 08:30 | NUR ---
Dr Minor here, seen pt,noted to him all abnormal blood results,HGB-6.0,HCT -17.5, Glucose -355 serumK- 2.9, with orders . Continue plan of care
[2021-09-17] MEDS ORDERED: VANCOMYCIN 1,000 MG in DEXTROSE 5% 250 ML IV SCH (09:00)
[2021-09-17] MEDS ORDERED: SULFAMETH/TRIMETH 400/80MG 1 TAB PO SCH (09:00)
--- NOTE | 2021-09-17 09:45 | NUR ---
Kristi in the front lobby brought blanket and cards for her ,spken to her by phone and updated her of her husbands condition.
[2021-09-17] MEDS: KCL 20 MEQ/WATER INJ PREMIX 100 ML IV SCH ×2 (10:07→12:21)
--- NOTE | 2021-09-17 10:30 | NUR ---
Dr NAGEL here, seen pt, noted to him all the abnormalblood results,to continue what was orered by DR Minor ,today for HD. vitalsigns stable, saturating well.
--- NOTE | 2021-09-17 12:11 | NUR ---
Dr Bonilla here, seen pt, noted allparameters,no further orders.
--- NOTE | 2021-09-17 12:16 | NUR ---
Typing and crossmatching done by clerk analyst.
--- NOTE | 2021-09-17 12:30 | NUR ---
Dr Degroot here, seen pt,noted all parameters, FIO2 decreased by same to 65%,continue to monitor.
[2021-09-17] MEDS: INSULIN LISPRO SLIDING SCALE 100 UNITS/ML VIAL SUBQ PRN ×2 (12:31→18:26)
[2021-09-17] MEDS ORDERED: POSACONAZOLE 100 MG PO SCH (13:30)
--- NOTE | 2021-09-17 14:07 | NUR ---
09/17/21 RD FOLLOW UP COMPLETED PLEASE REFER TO NUTRITION ASSESSMENT UNDER CARE ACTIVITY FOR ESTIMATED NUTRITIONAL NEEDS. 1. CONTINUE TPN PER MD ORDER 2. WHEN/IF MEDICALLY APPROPRIATE, ADVANCE TO RENAL/CCHO 60GM DIET WITH TEXTURE MODIFICATION PER SPEECH THERAPIST 3. IF PT REQUIRES TUBE FEEDING, RECOMMEND NEPRO WITH A GOAL RATE OF 40 ML/HR -FWF: 50 ML Q6H OR PER MD -START AT 10 ML/HR AND INCREASE BY 10 ML Q6H TOLERATED -WILL PROVIDE > 75% OF ESTIMATED NUTRITION NEEDS 4. RD TO FOLLOW UP 2-3 DAYS, HIGH RISK SADAF BRICENO RD
--- NOTE | 2021-09-17 14:30 | NUR ---
Condition still same, with episodes of shouting and yelling, opens eyes spontaneously at times,
--- NOTE | 2021-09-17 16:00 | NUR ---
Follow up with STEFANIA asencio the transfer to [place] ,and she said she will call pt insurance STEFANIA.
[2021-09-17] MEDS: CEFEPIME 500 MG in DEXTROSE 5% 50 ML IV SCH (17:20)
[2021-09-17] MEDS: ACYCLOVIR 200 MG CAP PO SCH (17:22)
--- NOTE | 2021-09-17 17:45 | NUR ---
PRBC one unit given by dialysis nurse with HD,VSS monitored by dialysis nurse,
--- NOTE | 2021-09-17 18:37 | NUR ---
Got a call from Mima AGUIAR of [facility] for the pt and wanted the number of Dr Minor regarding the transfer. Still on going HD ,PRBC done, no reaction noted ,well tolerated ,vital signs stable. Still on FIO2 of 65 % TPN at 50 mls/hr. continue plan of care
--- NOTE | 2021-09-17 19:30 | NUR ---
Shift resumed. HD ongoing. Pt alert and awake. Restless and yelling, Precedex titrated up to 0.8mcg. Will continue to monitor
[2021-09-17] MEDS ORDERED: DEXTROSE 20% IV SCH ×2 (20:00)
[2021-09-17] MEDS ORDERED: AMINO ACIDS 8.5% IV SCH ×2 (20:00)
--- NOTE | 2021-09-17 21:00 | NUR ---
TPN new bag started,verified with Jerry CUEVAS. Still restless and yelling, Precedex increased to 0.9mcg. Received a call from Lab, Pt's PCR came back positive.
[2021-09-18] VITALS (18 sets, daily range): BP systolic 116–166; BP diastolic 4–105
[2021-09-18] MEDS: BLOOD GLUCOSE MONITORING 1 DEV DEV MC SCH ×3 (01:00→12:43)
[2021-09-18] MEDS: DEXMEDETOMIDINE HCL 400 MCG in NACL 0.9% 96 ML IV PRN ×2 (04:05→09:38)
--- NOTE | 2021-09-18 04:07 | NUR ---
AM care done. Lozano care and skin care done. Repositioned Q2hrs. Precedex titrated down to 0.8mcg. Will continue to monitor.
[2021-09-18 05:51] LABS: ALBUMIN 1.6 g/dL (3.4-5.0); ANION GAP 16.4 (8-16); CARBON DIOXIDE 27.4 mmol/L (21-32); POTASSIUM 4.8 mmol/L (3.5-5.1); TOTAL BILIRUBIN 6.4 mg/dL (0.0-1.0)
[2021-09-18 05:56] LABS: MAGNESIUM 2.4 mg/dL (1.8-2.4); PHOSPHORUS 4.3 mg/dL (2.5-4.9)
[2021-09-18 06:28] LABS: CREATININE 5.5 mg/dL (0.6-1.3)
--- NOTE | 2021-09-18 06:47 | NUR ---
precedex titrated down to 0.7mcg. Received critical lab value BUN 76 and Cr 5.5, endorsed to next shift RN to follow up with MD.
--- NOTE | 2021-09-18 07:30 | NUR ---
RECEIVED REPORT FROM PRODUCTION COST ESTIMATOR NURSE. PT IN BD WITH HOB ELEVATED. LETHARGIC, AOX1 WHEN AWAKE, WITH EPISODES OF MUMBLING AND YELLING. NO APPARENT RESPIRATORY DISTRESS ON HIGH FLOW AT 36 L/MIN FIO2 65%, O2 SAT 97%. EVEN BILATERAL CHEST EXPANSION WITH BILATERAL CRACKLES HEARD UPON AUSCULTATION. WITH IV R 22 GAUGE ON R FOOT. WITH RIJ ROSHAN CATH WITH PIGTAIL RUNNING TPN 50ML/HR, PRECEDEX 0.7 MCG/KG/HR. PLAN FOR HD TODAY, HD NURSE AWARE. KLINE CATHETER IN PLACE DRAINING AT GRAVITY. SKIN INTACT. ALL SAFETY MEASURES IN PLACE, WILL CONTINUE TO CLOSELY MONITOR
[2021-09-18 07:46] LABS: BASOPHILS % (AUTO) 0.1 % (0.0-2.0); EOSINOPHILS % (AUTO) 0.1 % (0.0-4.0); HEMATOCRIT 25.9 % (36-52); HEMOGLOBIN 8.9 g/dL (12.0-18.0); LYMPHOCYTES # (AUTO) 0.1 K/uL (2.0-11.5); LYMPHOCYTES % (AUTO) 1.2 % (20.5-51.1); MEAN CORPUSCULAR HEMOGLOBIN 32 pg (27-31); MEAN CORPUSCULAR HGB CONC 35 g/dL (33-37); MEAN CORPUSCULAR VOLUME 91.4 fL (80-94); MONOCYTES # (AUTO) 0.1 K/uL (0.8-1.0); MONOCYTES % (AUTO) 1.2 % (1.7-9.3); NEUTROPHILS # (AUTO) 9.8 K/uL (1.8-7.7); NEUTROPHILS % (AUTO) 97.4 % (42.2-75.2); PLATELET COUNT (AUTO) 55 K/uL (140-450); RED BLOOD CELL COUNT(AUTO) 2.83 MIL/uL (4.20-6.10); RED CELL DISTRIBUTION WIDTH 16.2 % (11.6-13.7); WHITE BLOOD COUNT (AUTO) 10.1 K/uL (4.8-10.8)
[2021-09-18] MEDS ORDERED: POSACONAZOLE 100 MG PO SCH (09:00)
--- NOTE | 2021-09-18 09:15 | NUR ---
DUE MEDS GIVEN. UNABLE TO ADMINISTER POSACONAZOLE, PT UNABLE TO SWALLOW CRUSHED MEDS MIXED WITH APPLE SAUCE. DR RODRIGUEZ AWARE
--- NOTE | 2021-09-18 09:30 | NUR ---
PT'S , SUE, CALLED. UPDATE GIVEN
[2021-09-18] MEDS: PANTOPRAZOLE 40 MG INJ VIAL IVP SCH (09:36)
--- NOTE | 2021-09-18 09:45 | NUR ---
ORAL CARE AND KLINE CARE DONE. TURNED AND REPOSITIONED
[2021-09-18] MEDS ORDERED: LORazepam 2 MG/ML VIAL IVP PRN (10:50)
--- NOTE | 2021-09-18 11:00 | NUR ---
PER CASE MANAGEMENT, [facility] HAS ACCEPTED PATIENT, THEY WILL CALL BACK WHEN A ROOM IS AVAILABLE
--- NOTE | 2021-09-18 11:30 | NUR ---
PRECEDEX DCed BY DR RODRIGUEZ, ORDERED ATIVAN 1MG Q6H PRN FOR AGITATION
[2021-09-18] MEDS: INSULIN LISPRO SLIDING SCALE 100 UNITS/ML VIAL SUBQ PRN (12:43)
--- NOTE | 2021-09-18 14:37 | NUR ---
report given to Lore in [facility]
--- NOTE | 2021-09-18 15:30 | NUR ---
picked up by [facility] for transfer to [facility]. NOTIFIED. BLACK RING IN PT'S BELONGINGS GIVEN TO
== END 2021-09-18 15:57 | disposition short-term general hospital (02) | DRG 720 ==
LOC: MED 08:48 → MTU 15:34 → MIC 09-13 14:25
PROVIDERS: ADMIT Hospitalist; ATTEND Hospitalist
PROC: 5A09357 Assistance with Respiratory Ventilation, Less than 24 Consecutive Hours, Continuous Positive Airway Pressure (ICD-10-PCS; 2021-09-12)
PROC: 5A0935A Assistance with Respiratory Ventilation, Less than 24 Consecutive Hours, High Flow/Velocity Cannula (ICD-10-PCS; 2021-09-13)
PROC: 5A1D70Z Performance of Urinary Filtration, Intermittent, Less than 6 Hours Per Day (ICD-10-PCS; 2021-09-13)
PROC: 02HV33Z Insertion of Infusion Device into Superior Vena Cava, Percutaneous Approach (ICD-10-PCS; principal; 2021-09-14)
PROC: B548ZZA Ultrasonography of Superior Vena Cava, Guidance (ICD-10-PCS; 2021-09-14)
PROC: 5A0935A Assistance with Respiratory Ventilation, Less than 24 Consecutive Hours, High Flow/Velocity Cannula (ICD-10-PCS; 2021-09-14)
PROC: 5A1D70Z Performance of Urinary Filtration, Intermittent, Less than 6 Hours Per Day (ICD-10-PCS; 2021-09-14)
PROC: 5A0935A Assistance with Respiratory Ventilation, Less than 24 Consecutive Hours, High Flow/Velocity Cannula (ICD-10-PCS; 2021-09-15)
PROC: 5A1D70Z Performance of Urinary Filtration, Intermittent, Less than 6 Hours Per Day (ICD-10-PCS; 2021-09-15)
PROC: 5A0935A Assistance with Respiratory Ventilation, Less than 24 Consecutive Hours, High Flow/Velocity Cannula (ICD-10-PCS; 2021-09-16)
PROC: 5A1D70Z Performance of Urinary Filtration, Intermittent, Less than 6 Hours Per Day (ICD-10-PCS; 2021-09-16)
PROC: 30233N1 Transfusion of Nonautologous Red Blood Cells into Peripheral Vein, Percutaneous Approach (ICD-10-PCS; 2021-09-17)
PROC: 5A0935A Assistance with Respiratory Ventilation, Less than 24 Consecutive Hours, High Flow/Velocity Cannula (ICD-10-PCS; 2021-09-17)
PROC: 5A0935A Assistance with Respiratory Ventilation, Less than 24 Consecutive Hours, High Flow/Velocity Cannula (ICD-10-PCS; 2021-09-18)
PROC: 5A1D70Z Performance of Urinary Filtration, Intermittent, Less than 6 Hours Per Day (ICD-10-PCS; 2021-09-18)
DX: A41.9 Sepsis, unspecified organism (principal); J96.01 Acute respiratory failure with hypoxia; N17.0 Acute kidney failure with tubular necrosis; G93.41 Metabolic encephalopathy; U07.1 COVID-19; E43 Unspecified severe protein-calorie malnutrition; D61.818 Other pancytopenia; J18.9 Pneumonia, unspecified organism; E87.1 Hypo-osmolality and hyponatremia; D63.8 Anemia in other chronic diseases classified elsewhere; Z66 Do not resuscitate; C85.90 Non-Hodgkin lymphoma, unspecified, unspecified site; R65.20 Severe sepsis without septic shock; E66.9 Obesity, unspecified; K76.0 Fatty (change of) liver, not elsewhere classified; D50.9 Iron deficiency anemia, unspecified; R74.01 Elevation of levels of liver transaminase levels; R77.8 Other specified abnormalities of plasma proteins; E80.6 Other disorders of bilirubin metabolism; E87.5 Hyperkalemia; N18.9 Chronic kidney disease, unspecified; Z88.8 Allergy status to other drugs, medicaments and biological substances; Z86.16 Personal history of COVID-19; Z68.26 Body mass index [BMI] 26.0-26.9, adult
CPT/HCPCS: 36415; 36600; 71045; 76705; 80048; 80053; 80202; 81001; 82040; 82140; 82803; 82948; 83605; 83735; 83880; 84100; 84478; 84484; 85025; 86886; 86900; 86901; 86920; 87040; 87081; 87086; 93005; 94660; 96361; 96365; 96367; 96375; 99291; C9113; J0692; J1450; J1644; J1815; J2060; J2270; J3370; J3480; J7030; J7060; P9016; P9046; Q0092; U0003